=== PATIENT | male | born 1990 | race Two or more races ===

== ENCOUNTER 2018-08-14 12:48 | Emergency (ER) | payer SELFPAY ==
[2018-08-14 12:54] VITALS: O2SAT 99
[2018-08-14 12:55] VITALS: BMI 33.0
[2018-08-14 13:25] LABS: BASO # 0.1 K/uL (0.0-0.2); BASO % 0.6 % (0.0-2.0); EOS % 0.2 % (0.0-4.0); LYMPH # 2.7 K/uL (1.0-4.3); LYMPH % 28.6 % (20.0-40.0); MEAN CELL VOLUME 91.3 fl (80.0-94.0); MEAN CORPUSCULAR HEMOGLOBIN 31.5 pg (27.0-31.0); MEAN CORPUSCULAR HGB CONC 34.5 g/dL (33.0-37.0); MEAN PLATELET VOLUME 7.5 fl (7.2-11.7); MONO % 10.2 % (0.0-10.0); NEUT # 5.7 K/uL (1.8-7.0); NEUT % 60.4 % (50.0-75.0); RBC 4.77 Mil/uL (4.40-5.90); RED CELL DISTRIBUTION WIDTH 12.7 % (11.5-14.5); WHITE BLOOD COUNT 9.5 K/uL (4.8-10.8)
[2018-08-14] MEDS ORDERED: Tmp-Smz 800 mg-160 mg DS Tab PO STA (13:35)
[2018-08-14 13:36] LABS: ALB/GLOB RATIO 1.4 (1.0-2.1); ALBUMIN 4.9 g/dL (3.5-5.0); ALT/SGPT 63 U/L (21-72); AST/SGOT 45 U/L (17-59); BLOOD UREA NITROGEN 11 mg/dl (9-20); CALCIUM 10.2 mg/dL (8.4-10.2); GFR NON-AFRICAN AMERICAN > 60
--- NOTE | 2018-08-14 13:40 | ED PDOC ---
HPI: Skin/Bite Injury Time Seen by Provider: 08/14/18 13:00 Chief Complaint (Nursing): Abnormal Skin Integrity Chief Complaint (Provider): rash History Per: Patient History/Exam Limitations: no limitations Additional Complaint(s): 28 y/o Male with no significant PMH who presents with arm redness. Patient states that 3 days ago he used IV Crystal Meth but felt no reaction as he had lost the vein so gave himself a bolus. Then developed bruising and tenderness and googled that it may have gotten stuck under the skin or in the tissue so massaged it and felt the effects of both drugs immediately. The following day he developed redness that has been progressing over the past 2 days with increased swelling. Denies fever, chills, night sweats, pus drainage. [place] an urgent care who referred him to ER for further evaluation. 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 Denies any other drugs, IV or otherwise. Past Medical History Reviewed: Historical Data, Nursing Documentation, Vital Signs Vital Signs: Last Vital Signs Temp 98.4 F 08/14/18 12:54 Pulse 89 08/14/18 12:54 Resp 18 08/14/18 12:54 BP 157/99 H 08/14/18 12:54 Pulse Ox 99 08/14/18 12:54 - Medical History PMH: No Chronic Diseases - Family History Family History: States: Unknown Family Hx - Social History Current smoker - smoking cessation education provided: Yes (2 - 3 cigs per day for the past 7yrs) Alcohol: Occasional Drugs: Methamphetamine - Home Medications Home Medications: Ambulatory Orders Medication Instructions Recorded Sulfamethoxazole/Trimethoprim 2 tab PO BID 7 Days tab 08/14/18 [Bactrim DS 800 mg-160 mg] - Allergies Allergies/Adverse Reactions: Allergies Allergy/AdvReac Type Severity Reaction Status Date / Time No Known Allergies Allergy Verified 08/14/18 13:02 Review of Systems Constitutional: Negative for: Fever, Chills Skin: Positive for: Rash Physical Exam - Reviewed Nursing Documentation Reviewed: Yes Vital Signs Reviewed: Yes - Physical Exam Appears: Positive for: Non-toxic, Uncomfortable Extremity: Positive for: Normal ROM (with flexion and extension of left elbow, wrist and fingers. ), Capillary Refill (< 2 sec), Swelling (+ blanching erythema and swelling on left anterior forearm extending from antecubital fossa to mid forearm. Mildly increased warmth in comparison to Right arm. No drainage or fluc tuance. ) Neurological/Psych: Positive for: Awake, Alert - Laboratory Results Result Diagrams: 08/14/18 13:22 08/14/18 13:22 Lab Results: Total Bilirubin 1.3 mg/dl (0.2-1.3) 08/14/18 13:22 AST 45 U/L (17-59) 08/14/18 13:22 ALT 63 U/L (21-72) 08/14/18 13:22 Alkaline Phosphatase 80 U/L (38-126) 08/14/18 13:22 Total Protein 8.3 G/DL (6.3-8.2) H 08/14/18 13:22 Albumin 4.9 g/dL (3.5-5.0) 08/14/18 13:22 Globulin 3.4 gm/dL (2.2-3.9) 08/14/18 13:22 Albumin/Globulin Ratio 1.4 (1.0-2.1) 08/14/18 13:22 - ECG O2 Sat by Pulse Oximetry: 99 Medical Decision Making Medical Decision Making: CBC, BMP, blood cultures Blood work unremarkable. Bactrim 2tabs PO x 1 ordered. Pt advised to refrain from further drug use and return instructions provided. Stable for d/c home. Disposition - Clinical Impression Clinical Impression: Cellulitis - Patient ED Disposition Is Patient to be Admitted: No - Disposition Disposition: Routine/Home Disposition Time: 13:54 Condition: STABLE Additional Instructions: Return to ER if you develop fevers or redness worsens or pus drainage develops. Take full course of antibiotics as prescribed. You should refrain from using drugs, especially intravenous and do not share needles. Follow up with your primary care doctor as needed. Prescriptions: Sulfamethoxazole/Trimethoprim [Bactrim DS 800 mg-160 mg] 2 tab PO BID 7 Days tab Instructions: Cellulitis (Skin Infection), Adult (DC) Forms: [employer] (Kinyarwanda) Print Language: SENEGALESE
[2018-08-14] MEDS ORDERED: Tmp-Smz 800 mg-160 mg DS Tab ONE (13:42)
[2018-08-14 14:21] VITALS: BP 138/73; PULSE 74; RESP 16; TEMP 98.7
== END 2018-08-14 13:50 | disposition home or self-care (01) ==
LOC: H.ER 12:48
DX: L03.114 Cellulitis of left upper limb (principal); F19.10 Other psychoactive substance abuse, uncomplicated